=== PATIENT | female | born 1950 | race Caucasian/White ===

== ENCOUNTER 2017-06-04 12:07 | Outpatient (CLI) | payer OTHER, MEDICARE ==
[~2017-06-04 12:07] MED LIST: ATEN-41 PO; NAPR-227 PO; SIMV10TA6 PO
== END 2017-06-04 21:26 | disposition home or self-care (01) ==
LOC: SMI 12:07
PROVIDERS: ATTEND Orthopaedic Surgery
DX: M84.364A Stress fracture, left fibula, initial encounter for fracture (principal)
CPT/HCPCS: 73721

== ENCOUNTER 2018-10-09 09:19 | Outpatient (CLI) | payer OTHER, MEDICARE ==
[~2018-10-09 09:19] MED LIST changes: +NAPR-1172 PO; -NAPR-227 PO
== END 2018-10-09 21:01 | disposition home or self-care (01) ==
LOC: SCA 09:19
DX: Z01.810 Encounter for preprocedural cardiovascular examination (principal); I10 Essential (primary) hypertension; E78.5 Hyperlipidemia, unspecified; Z79.899 Other long term (current) drug therapy
CPT/HCPCS: 93005

== ENCOUNTER 2022-01-31 14:26 | Inpatient (IN) | payer OTHER, MEDICARE ==
[~2022-01-31] VITALS: Ht 165.1 cm; Wt 85.3 kg
[2022-01-31 14:26] VITALS: BP_SYST 159
[~2022-01-31 14:26] MED LIST changes: -SIMV10TA6 PO; +SIMV10TA97 PO
[2022-01-31] MEDS ORDERED: fentaNYL CITRATE/PF 100 MCG/2 ML AMP IVP ONE (15:00)
[2022-01-31] MEDS ORDERED: GENTAMICIN 100 mg/50 mL NS 50 ML IV ONE ×2 (15:00→16:05)
[2022-01-31] MEDS ORDERED: CEFAZOLIN 1 GM IVPB PREMIX 50 ML IV ONE (15:00)
[2022-01-31] MEDS ORDERED: NACL 0.9% 1,000 ML IV ONE (15:00)
[2022-01-31 15:52] LABS: ANION GAP 10 (5-15); CALCIUM 8.9 mg/dL (8.4-11.0); CHLORIDE 108 mmol/L (98-107); CREATININE 0.86 mg/dL (0.55-1.30); GLUCOSE 159 mg/dL (70-99); POTASSIUM 3.9 mmol/L (3.5-5.1); SODIUM SERUM 141 mmol/L (136-145); UREA NITROGEN, BLOOD 24 mg/dL (8-21)
[2022-01-31 15:58] LABS: ALANINE AMINOTRANSFERASE 34 U/L (12-78); ALBUMIN 3.6 g/dL (3.4-4.8); ASPARTATE AMINOTRANSFERASE 21 U/L (10-37); TOTAL BILIRUBIN 0.5 mg/dL (0.0-1.0)
[2022-01-31 16:15] LABS: HEMOGLOBIN 13.8 g/dL (12.0-16.0); MEAN CORPUSCULAR HEMOGLOBIN 30 pg (27-31); MEAN CORPUSCULAR HGB CONC 34 % (32-36); MEAN CORPUSCULAR VOLUME 90 fL (79.0-98.0); RED BLOOD CELL COUNT(AUTO) 4.56 MIL/uL (4.2-6.2); WHITE BLOOD COUNT (AUTO) 5.1 K/uL (4.8-10.8)
[2022-01-31 16:16] LABS: BASOPHILS % (AUTO) 0.4 % (0.0-2.0); EOSINOPHILS % (AUTO) 1.2 % (0.0-4.0); LYMPHOCYTES # (AUTO) 1.2 K/uL (1.0-5.5); LYMPHOCYTES % (AUTO) 23.8 % (20.5-51.5); MONOCYTES % (AUTO) 10.6 % (1.7-9.3); NEUTROPHILS # (AUTO) 3.3 K/uL (1.8-7.7); PLATELET COUNT (AUTO) 202 K/uL (130-430); RED CELL DISTRIBUTION WIDTH 14.3 % (9.0-15.0)
[2022-01-31 16:17] LABS: EOSINOPHILS # (AUTO) 0.1 K/uL (0.0-0.4); MONOCYTES # (AUTO) 0.5 K/uL (0.0-1.0)
[2022-01-31] MEDS ORDERED: MORPHINE 2 MG/ML INJ. SYRINGE ONE (16:24)
[2022-01-31] MEDS ORDERED: MORPHINE 2 MG/ML INJ. SYRINGE IVP ONE ×3 (16:30→17:15)
[2022-01-31] MEDS ORDERED: D5NS 500 ML IV ONE (17:30)
[2022-01-31] MEDS ORDERED: ATEN-41 PO (17:39)
[2022-01-31] MEDS ORDERED: LIP10 PO (17:40)
[2022-01-31] MEDS ORDERED: MORPHINE 2 MG/ML INJ. SYRINGE IVP PRN ×5 (17:45→20:00)
[2022-01-31] MEDS ORDERED: MAGNESIUM SULFATE 50 ML IV PRN (19:00)
[2022-01-31] MEDS ORDERED: DOCUSATE SODIUM 100 MG CAPSULE PO PRN (19:00)
[2022-01-31] MEDS ORDERED: POTASSIUM CHLORIDE 20 MEQ TAB.PRT.SR PO PRN (19:00)
[2022-01-31] MEDS ORDERED: NALOXONE HCL 0.4 MG/ML AMP (NARCAN) IVP PRN ×2 (19:00)
[2022-01-31] MEDS ORDERED: MUPIROCIN 2% TOPICAL OINTMENT 22 GM NS PRN (19:00)
[2022-01-31] MEDS ORDERED: ZOLPIDEM TARTRATE 5 MG TABLET PO PRN (19:00)
[2022-01-31] MEDS ORDERED: ACETAMINOPHEN 325 MG TABLET PO PRN (19:00)
[2022-01-31] MEDS ORDERED: LORazepam 2 MG/ML VIAL IVP PRN (19:00)
[2022-01-31] MEDS ORDERED: DIPH-TET-PERTUS Vaccine 0.5 ML VIAL (ADACEL) I.M. ONE ×2 (20:00→20:03)
[2022-01-31] MEDS: MORPHINE 2 MG/ML INJ. SYRINGE IVP PRN (20:11)
[2022-01-31] MEDS: HEPARIN SODIUM,PORCINE 5,000 UNITS/ML VIAL SUBCUT SCH (21:00)
[2022-01-31 22:56] VITALS: BP_SYST 150
[2022-01-31] MEDS: ONDANSETRON HCL 4 MG/2 ML VIAL IVP PRN (23:22)
[2022-01-31 23:38] VITALS: BP_SYST 140
[2022-02-01] MEDS: MORPHINE 2 MG/ML INJ. SYRINGE IVP PRN ×3 (03:17→17:59)
[2022-02-01 07:28] LABS: ANION GAP 7 (5-15); CALCIUM 7.6 mg/dL (8.4-11.0); CHLORIDE 107 mmol/L (98-107); GLUCOSE 141 mg/dL (70-99); POTASSIUM 3.7 mmol/L (3.5-5.1); SODIUM SERUM 140 mmol/L (136-145); UREA NITROGEN, BLOOD 16 mg/dL (8-21)
[2022-02-01 07:55] LABS: BASOPHILS % (AUTO) 0.4 % (0.0-2.0); EOSINOPHILS # (AUTO) 0.1 K/uL (0.0-0.4); HEMOGLOBIN 13.1 g/dL (12.0-16.0); LYMPHOCYTES # (AUTO) 1.4 K/uL (1.0-5.5); LYMPHOCYTES % (AUTO) 21.6 % (20.5-51.5); MEAN CORPUSCULAR HEMOGLOBIN 30 pg (27-31); MEAN CORPUSCULAR HGB CONC 36 % (32-36); MEAN CORPUSCULAR VOLUME 85 fL (79.0-98.0); MONOCYTES # (AUTO) 0.8 K/uL (0.0-1.0); MONOCYTES % (AUTO) 12.6 % (1.7-9.3); NEUTROPHILS % (AUTO) 64.4 % (40.0-70.0); PLATELET COUNT (AUTO) 195 K/uL (130-430); RED BLOOD CELL COUNT(AUTO) 4.35 MIL/uL (4.2-6.2); RED CELL DISTRIBUTION WIDTH 13.9 % (9.0-15.0); WHITE BLOOD COUNT (AUTO) 6.3 K/uL (4.8-10.8)
[2022-02-01 08:00] VITALS: BP_SYST 169
[2022-02-01 08:45] LABS: INR 0.9 (0.8-1.2); PROTHROMBIN TIME 9.7 SECS (9.5-12.5)
[2022-02-01] MEDS: HEPARIN SODIUM,PORCINE 5,000 UNITS/ML VIAL SUBCUT SCH ×2 (09:00→21:20)
[2022-02-01] MEDS: ATENOLOL 25 MG TABLET(TENORMIN) PO SCH (09:15)
[2022-02-01] MEDS ORDERED: hydrALAZINE HCL 20 MG/ML VIAL IVP PRN ×2 (09:15→14:15)
[2022-02-01] MEDS: ONDANSETRON HCL 4 MG/2 ML VIAL IVP PRN ×2 (09:16→17:08)
[2022-02-01 11:26] LABS: BILIRUBIN,URINE NEGATIVE (NEGATIVE); BLOOD, URINE NEGATIVE (NEGATIVE); CLARITY/URINE CLEAR (CLEAR); COLOR,URINE YELLOW (YELLOW); GLUCOSE,URINE NEGATIVE (NEGATIVE); KETONES,URINE NEGATIVE (NEGATIVE); LEUKOCYTE ESTERASE ,URINE NEGATIVE (NEGATIVE); NITRITE, URINE NEGATIVE (NEGATIVE); PROTEIN URINE NEGATIVE (NEGATIVE); UROBILINOGEN,URINE 0.2 (0.2-1.0)
[2022-02-01 12:50] VITALS: BP_SYST 159
[2022-02-01] MEDS ORDERED: HYDROmorphone 1 MG/ML INJ. CARTRIDGE IVP PRN ×2 (14:15)
[2022-02-01] MEDS: LR 1,000 ML IV SCH (14:15)
[2022-02-01] MEDS ORDERED: MEPERIDINE HCL/PF 25 MG/ML DISP.SYRIN IVP PRN (14:15)
[2022-02-01] MEDS ORDERED: ACETAMINOPHEN I.V. 1000 MG 100 ML IV ONE (14:15)
[2022-02-01] MEDS ORDERED: LABETALOL 100 MG/ 20ML VIAL IVP PRN (14:15)
[2022-02-01] MEDS ORDERED: METOCLOPRAMIDE HCL 10 MG/2 ML VIAL IVP PRN (14:15)
[2022-02-01] MEDS ORDERED: CEFAZOLIN 2 GM IVPB PREMIX 50 ML IV ONE (15:21)
[2022-02-01] MEDS ORDERED: NS IRRIG SOLN 1000 ML IR ONE (15:21)
[2022-02-01] MEDS ORDERED: LR 1,000 ML IV.SOLN IV ONE (15:21)
[2022-02-01] MEDS ORDERED: DEXAMETHASONE SOD PHOSPHATE 4 MG/ML VIAL ONE (15:21)
[2022-02-01] MEDS ORDERED: KETOROLAC TROMETHAMINE 30 MG VIAL ONE (15:21)
[2022-02-01] MEDS ORDERED: fentaNYL CITRATE/PF 100 MCG/2 ML AMP ONE (15:21)
[2022-02-01] MEDS ORDERED: PROPOFOL 200MG/ 20ML VIAL (DIPRIVAN) IV ONE (15:21)
[2022-02-01] MEDS ORDERED: SEVOFLURANE 15 MIN GAS INH ONE (15:21)
[2022-02-01] MEDS ORDERED: BUPIVACAINE /EPINEPHRINE/PF 0.25% 30 ML VIAL INJ ONE (15:21)
[2022-02-01] MEDS ORDERED: ONDANSETRON HCL 4 MG/2 ML VIAL ONE (15:21)
[2022-02-01] MEDS ORDERED: MIDAZOLAM HCL 5 MG/ML VIAL (VERSED) IV ONE (15:21)
[2022-02-01] MEDS ORDERED: LABETALOL HCL 20 MG/4 ML CARTRIDGE IVP ONE (15:32)
[2022-02-01] MEDS ORDERED: HYDROmorphone 1 MG/ML INJ. CARTRIDGE ONE (15:49)
[2022-02-01] MEDS ORDERED: HYDROcodone/ACETAMIN 5-325 MG TAB (NORCO/ VICODIN) PO PRN ×2 (16:00)
[2022-02-01] MEDS ORDERED: NALOXONE HCL 0.4 MG/ML AMP (NARCAN) IVP PRN ×2 (16:00)
[2022-02-01] MEDS ORDERED: ACETAMINOPHEN 325 MG TABLET PO PRN (16:00)
[2022-02-01 17:57] VITALS: BP_SYST 165
[2022-02-01 18:12] VITALS: BP_SYST 144
[2022-02-01 19:00] VITALS: BP_SYST 122
[2022-02-01 20:00] VITALS: BP_SYST 122
[2022-02-01] MEDS: DOCUSATE SODIUM 100 MG CAPSULE PO SCH (21:18)
[2022-02-01] MEDS: CEFAZOLIN 1 GM IVPB PREMIX 50 ML IV SCH (21:21)
[2022-02-02] VITALS: BP_SYST 126
[2022-02-02] MEDS: LR 1,000 ML IV SCH ×2 (00:15→09:35)
[2022-02-02] MEDS ORDERED: HYDR-3917 PO (00:46)
[2022-02-02] MEDS ORDERED: CEPH250C PO (00:49)
[2022-02-02] MEDS ORDERED: CEPH250S PO (00:49)
[2022-02-02] MEDS: CEFAZOLIN 1 GM IVPB PREMIX 50 ML IV SCH (06:11)
[2022-02-02 07:27] LABS: BASOPHILS % (AUTO) 0.1 % (0.0-2.0); HEMATOCRIT 37.4 % (36-48); HEMOGLOBIN 13.4 g/dL (12.0-16.0); LYMPHOCYTES # (AUTO) 1.1 K/uL (1.0-5.5); LYMPHOCYTES % (AUTO) 14.8 % (20.5-51.5); MEAN CORPUSCULAR HEMOGLOBIN 30 pg (27-31); MEAN CORPUSCULAR HGB CONC 36 % (32-36); MEAN CORPUSCULAR VOLUME 85 fL (79.0-98.0); MONOCYTES # (AUTO) 0.7 K/uL (0.0-1.0); MONOCYTES % (AUTO) 9.2 % (1.7-9.3); NEUTROPHILS # (AUTO) 5.7 K/uL (1.8-7.7); NEUTROPHILS % (AUTO) 75.9 % (40.0-70.0); PLATELET COUNT (AUTO) 211 K/uL (130-430); WHITE BLOOD COUNT (AUTO) 7.6 K/uL (4.8-10.8)
[2022-02-02 07:53] LABS: ANION GAP 10 (5-15); CHLORIDE 105 mmol/L (98-107); CREATININE 0.71 mg/dL (0.55-1.30); GLUCOSE 148 mg/dL (70-99); POTASSIUM 3.9 mmol/L (3.5-5.1); SODIUM SERUM 138 mmol/L (136-145); UREA NITROGEN, BLOOD 14 mg/dL (8-21)
[2022-02-02 08:00] VITALS: BP_SYST 146
[2022-02-02] MEDS: ATENOLOL 25 MG TABLET(TENORMIN) PO SCH (09:28)
[2022-02-02] MEDS: DOCUSATE SODIUM 100 MG CAPSULE PO SCH (09:29)
[2022-02-02] MEDS: HEPARIN SODIUM,PORCINE 5,000 UNITS/ML VIAL SUBCUT SCH (09:31)
[2022-02-02 11:02] VITALS: BP_SYST 146
[2022-02-02 11:29] VITALS: BP_SYST 150
== END 2022-02-02 14:40 | disposition home health service (06) | DRG 563 ==
LOC: SED 14:26 → STU 17:30
PROVIDERS: ADMIT General Practice; ATTEND General Practice
PROC: 2W3DX1Z Immobilization of Left Lower Arm using Splint (ICD-10-PCS; principal; 2022-01-31)
DX: S52.512A Displaced fracture of left radial styloid process, initial encounter for closed fracture (principal); I10 Essential (primary) hypertension; W01.0XXA Fall on same level from slipping, tripping and stumbling without subsequent striking against object, initial encounter; E78.5 Hyperlipidemia, unspecified; S52.612A Displaced fracture of left ulna styloid process, initial encounter for closed fracture; E83.52 Hypercalcemia; Z20.822 Contact with and (suspected) exposure to COVID-19; E89.0 Postprocedural hypothyroidism; Y93.89 Activity, other specified; Y92.89 Other specified places as the place of occurrence of the external cause; Y99.8 Other external cause status
CPT/HCPCS: 36415; 71045; 80048; 80053; 81003; 83036; 83735; 85025; 85610-TC; 85730-TC; 86886; 86900; 86901; 87081; 90715; 93005; 94640; 94760; 96365; 96375; 99285; G0378; J0131; J0690; J1100; J1170; J1580; J1644; J1885; J2060; J2250; J2270; J2405; J2704; J3010; J3490; J7120

== ENCOUNTER 2022-04-24 21:38 | Emergency (ER) | payer OTHER, MEDICARE ==
[~2022-04-24] VITALS: Ht 167.6 cm; Wt 78.9 kg
[~2022-04-24 21:38] MED LIST changes: +CEPH250C PO; +HYDR-3917 PO; +LIP10 PO; -NAPR-1172 PO; -SIMV10TA97 PO
[2022-04-24 21:40] VITALS: BP_SYST 166
--- NOTE | 2022-04-24 21:46 | NUR ---
PT HERE C/O RLQ ABD PAIN RADIATES TO RUQ WITH N/V SINCE 1830. PT DENIES DIARRHEA ND DYSURIA. PER PT IWAS SUDDEN ONSET. PMH:HTN,HYPERLIPIDEMIA PT AAOX4, NO SOB NOTED, PT AMBULATED TO RM 8 WITH STEADY GAIT.
[2022-04-24 22:33] LABS: BASOPHILS % (AUTO) 0.3 % (0.0-2.0); EOSINOPHILS % (AUTO) 0.2 % (0.0-4.0); HEMATOCRIT 42.8 % (36-48); HEMOGLOBIN 14.9 g/dL (12.0-16.0); LYMPHOCYTES # (AUTO) 1.6 K/uL (1.0-5.5); LYMPHOCYTES % (AUTO) 15.8 % (20.5-51.5); MEAN CORPUSCULAR HEMOGLOBIN 30 pg (27-31); MEAN CORPUSCULAR HGB CONC 35 % (32-36); MEAN CORPUSCULAR VOLUME 85 fL (79.0-98.0); MONOCYTES # (AUTO) 0.6 K/uL (0.0-1.0); MONOCYTES % (AUTO) 5.8 % (1.7-9.3); NEUTROPHILS # (AUTO) 7.8 K/uL (1.8-7.7); NEUTROPHILS % (AUTO) 77.9 % (40.0-70.0); PLATELET COUNT (AUTO) 249 K/uL (130-430); RED BLOOD CELL COUNT(AUTO) 5.06 MIL/uL (4.2-6.2); RED CELL DISTRIBUTION WIDTH 13.2 % (9.0-15.0)
[2022-04-24 22:42] LABS: ANION GAP 9 (5-15); CALCIUM 9.8 mg/dL (8.4-11.0); CHLORIDE 101 mmol/L (98-107); GLUCOSE 158 mg/dL (70-99); POTASSIUM 4.8 mmol/L (3.5-5.1); SODIUM SERUM 138 mmol/L (136-145); UREA NITROGEN, BLOOD 16 mg/dL (8-21)
[2022-04-24] MEDS ORDERED: NACL 0.9% 1,000 ML IV ONE (22:45)
[2022-04-24] MEDS ORDERED: KETOROLAC TROMETHAMINE 30 MG VIAL IVP ONE (22:45)
[2022-04-24 22:49] LABS: ALANINE AMINOTRANSFERASE 25 U/L (12-78); ALBUMIN 4.2 g/dL (3.4-4.8); ASPARTATE AMINOTRANSFERASE 19 U/L (10-37); LIPASE 116 U/L (73-393)
--- NOTE | 2022-04-24 22:50 | NUR ---
Pt taken to CT for imaging. Addendum: 04/24/22 at 2316 by [id number] Returned in stable condition.
--- NOTE | 2022-04-24 23:00 | NUR ---
# 20 gauge angiocath placed to R HAND. Use of asceptic technique. Opsite placed over site. Blood return noted. Flushed with 10 cc of normal saline. No evidence of infiltration noted. Patient tolerated well.
--- NOTE | 2022-04-25 00:23 | NUR ---
Pt resting comfortably in bed, at bedside. NORMAN. JOHN.
[2022-04-25 00:26] LABS: BILIRUBIN,URINE NEGATIVE (NEGATIVE); BLOOD, URINE 3+ (NEGATIVE); CLARITY/URINE CLEAR (CLEAR); COLOR,URINE YELLOW (YELLOW); GLUCOSE,URINE NEGATIVE (NEGATIVE); KETONES,URINE TRACE (NEGATIVE); LEUKOCYTE ESTERASE ,URINE 1+ (NEGATIVE); NITRITE, URINE NEGATIVE (NEGATIVE); PROTEIN URINE NEGATIVE (NEGATIVE); UROBILINOGEN,URINE 0.2 (0.2-1.0)
[2022-04-25 01:11] LABS: BACTERIA,URINE None Seen /HPF (None Seen); RBC,URINE 20-50 /HPF (0-3)
[2022-04-25 01:12] LABS: MUCUS,URINE 3+ /LPF (None Seen)
[2022-04-25] MEDS ORDERED: cefTRIAXone 1 GM IVPB PREMIX 50 ML IV ONE (01:30)
[2022-04-25] MEDS ORDERED: ONDA-8 TL (01:30)
[2022-04-25] MEDS ORDERED: NITR-85 PO (01:30)
[2022-04-25] MEDS ORDERED: NAPR-690 PO (01:30)
[2022-04-25] MEDS ORDERED: HYDR-3917 PO (01:30)
--- NOTE | 2022-04-25 01:40 | NUR ---
Patient given written and verbal discharge instructions and verbalizes understanding. ER MD Marte discussed with patient the results and treatment provided. Patient in stable condition. ID arm band removed. IV catheter removed intact and dressing applied, no active bleeding. Rx sent to pharmacy of choice. Patient educated on pain management and to follow up with PMD. Pain Scale 0/10 upon discharge. Opportunity for questions provided and answered. Medication side effect fact sheet provided.
[2022-04-25 01:54] VITALS: BP_SYST 151
== END 2022-04-25 01:50 | disposition home or self-care (01) ==
LOC: SED 21:38
DX: N20.1 Calculus of ureter (principal); R10.31 Right lower quadrant pain; R11.10 Vomiting, unspecified; Z79.899 Other long term (current) drug therapy
CPT/HCPCS: 99285; 74176; 96374; 96361; 80053; 81000; 83690; 85025; 87086; 36415; 93005; 76376; J1885; J7030; J0696

== ENCOUNTER 2022-06-12 09:51 | Outpatient (CLI) | payer OTHER, MEDICARE ==
[~2022-06-12 09:51] MED LIST changes: +NAPR-690 PO; +NITR-85 PO; +ONDA-8 TL
== END 2022-06-12 19:43 | disposition home or self-care (01) ==
LOC: SRD 09:51
PROVIDERS: ATTEND Urology
DX: Z01.818 Encounter for other preprocedural examination (principal); N20.1 Calculus of ureter; N20.0 Calculus of kidney; M41.84 Other forms of scoliosis, thoracic region; Q25.46 Tortuous aortic arch
CPT/HCPCS: 71046-TC; 93005

== ENCOUNTER 2024-04-14 12:37 | Inpatient (IN) | payer OTHER, MEDICARE ==
[~2024-04-14] VITALS: Ht 167.6 cm; Wt 72.6 kg
[~2024-04-14 12:37] MED LIST changes: +ATOR-449 PO; -LIP10 PO
[2024-04-14 12:46] VITALS: BP_SYST 141; PULSE 74; RESP 16; TEMP 97.3; O2SAT 95
[2024-04-14 13:06] LABS: BASOPHILS % (AUTO) 0.4 % (0.0-2.0); EOSINOPHILS # (AUTO) 0.1 K/uL (0.0-0.4); HEMATOCRIT 42.5 % (36-48); HEMOGLOBIN 14.7 g/dL (12.0-16.0); LYMPHOCYTES % (AUTO) 28.1 % (20.5-51.5); MEAN CORPUSCULAR HEMOGLOBIN 29 pg (27-31); MEAN CORPUSCULAR HGB CONC 35 % (32-36); MEAN CORPUSCULAR VOLUME 85 fL (79.0-98.0); MONOCYTES # (AUTO) 0.7 K/uL (0.0-1.0); MONOCYTES % (AUTO) 9.6 % (1.7-9.3); NEUTROPHILS # (AUTO) 4.4 K/uL (1.8-7.7); NEUTROPHILS % (AUTO) 60.9 % (40.0-70.0); PLATELET COUNT (AUTO) 249 K/uL (130-430); RED CELL DISTRIBUTION WIDTH 13.5 % (9.0-15.0); WHITE BLOOD COUNT (AUTO) 7.2 K/uL (4.8-10.8)
[2024-04-14 13:16] LABS: ANION GAP 9 (5-15); CARBON DIOXIDE 28 mmol/L (23-29); CHLORIDE 106 mmol/L (98-107); CREATININE 0.83 mg/dL (0.55-1.30); GLUCOSE 135 mg/dL (74-106); POTASSIUM 3.6 mmol/L (3.5-5.1); SODIUM SERUM 143 mmol/L (136-145); UREA NITROGEN, BLOOD 17 mg/dL (8-21)
[2024-04-14] MEDS: KETOROLAC TROMETHAMINE 30 MG VIAL IVP ONE (13:19)
[2024-04-14] MEDS: ONDANSETRON HCL 4 MG/2 ML VIAL IVP ONE ×2 (13:21→17:06)
[2024-04-14 13:53] LABS: BILIRUBIN,URINE NEGATIVE (NEGATIVE); BLOOD, URINE 3+ (NEGATIVE); CLARITY/URINE CLOUDY (CLEAR); COLOR,URINE BROWN (YELLOW); GLUCOSE,URINE NEGATIVE (NEGATIVE); KETONES,URINE NEGATIVE (NEGATIVE); LEUKOCYTE ESTERASE ,URINE NEGATIVE (NEGATIVE); NITRITE, URINE POSITIVE (NEGATIVE); PH,URINE 5.5 (5.0-8.0); PROTEIN URINE 2+ (NEGATIVE)
[2024-04-14 14:00] LABS: BACTERIA,URINE MODERATE /HPF (None Seen); RBC,URINE >100 /HPF (0-3); YEAST,URINE Rare /HPF (None Seen)
[2024-04-14 14:01] LABS: MUCUS,URINE 1+ /LPF (None Seen)
[2024-04-14] MEDS: MORPHINE 2 MG/ML INJ. SYRINGE IVP ONE (17:07)
[2024-04-14] MEDS: TAMSULOSIN HCL 0.4 MG CAP PO ONE ×2 (18:04→20:28)
[2024-04-14] MEDS: LR 1,000 ML IV ONE (20:28)
[2024-04-14 22:00] VITALS: BP_SYST 130; PULSE 70; RESP 18; TEMP 98; O2SAT 96
[2024-04-14] MEDS ORDERED: KETOROLAC TROMETHAMINE 15 MG VIAL IVP PRN (22:00)
[2024-04-14] MEDS ORDERED: DEXTROSE 50% JECT 50 ML DISP.SYRIN IVP PRN (22:00)
[2024-04-14] MEDS ORDERED: ACETAMINOPHEN 650 MG SUPP.RECT RC PRN (22:00)
[2024-04-14] MEDS ORDERED: cloNIDine HCL 0.1 MG TABLET PO PRN (22:00)
[2024-04-14] MEDS ORDERED: INSULIN REGULAR, HUMAN 100 UNITS/ML, 3 ML VIAL (humuLIN R) SUBCUT PRN (22:00)
[2024-04-14] MEDS ORDERED: ONDANSETRON 4 MG ODT TAB TL PRN (22:00)
[2024-04-14] MEDS ORDERED: NALOXONE HCL 0.4 MG/ML AMP (NARCAN) IVP PRN (22:00)
[2024-04-14] MEDS ORDERED: ZOLPIDEM TARTRATE 5 MG TABLET PO PRN (22:00)
[2024-04-14] MEDS: PIPERACILLIN/TAZO 3.375 GM in D5W 50 ML IV SCH (22:10)
[2024-04-14] MEDS: HYDROcodone/ACETAMIN 5-325 MG TAB (NORCO/ VICODIN) PO PRN (22:24)
[2024-04-15 05:00] LABS: BASOPHILS % (AUTO) 0.4 % (0.0-2.0); EOSINOPHILS # (AUTO) 0.1 K/uL (0.0-0.4); EOSINOPHILS % (AUTO) 1.1 % (0.0-4.0); HEMATOCRIT 36.8 % (36-48); HEMOGLOBIN 12.8 g/dL (12.0-16.0); LYMPHOCYTES # (AUTO) 1.6 K/uL (1.0-5.5); LYMPHOCYTES % (AUTO) 26.7 % (20.5-51.5); MEAN CORPUSCULAR HEMOGLOBIN 30 pg (27-31); MEAN CORPUSCULAR HGB CONC 35 % (32-36); MEAN CORPUSCULAR VOLUME 85 fL (79.0-98.0); MONOCYTES # (AUTO) 0.8 K/uL (0.0-1.0); MONOCYTES % (AUTO) 12.8 % (1.7-9.3); NEUTROPHILS # (AUTO) 3.6 K/uL (1.8-7.7); PLATELET COUNT (AUTO) 199 K/uL (130-430); RED BLOOD CELL COUNT(AUTO) 4.33 MIL/uL (4.2-6.2); RED CELL DISTRIBUTION WIDTH 13.1 % (9.0-15.0); WHITE BLOOD COUNT (AUTO) 6.1 K/uL (4.8-10.8)
[2024-04-15 05:55] LABS: ALANINE AMINOTRANSFERASE 20 U/L (12-78); ALBUMIN 3.2 g/dL (3.4-4.8); ANION GAP 6 (5-15); CALCIUM 8.4 mg/dL (8.4-11.0); CARBON DIOXIDE 29 mmol/L (23-29); CHLORIDE 107 mmol/L (98-107); CREATININE 0.91 mg/dL (0.55-1.30); GLUCOSE 115 mg/dL (74-106); POTASSIUM 3.7 mmol/L (3.5-5.1); SODIUM SERUM 142 mmol/L (136-145); TOTAL BILIRUBIN 1.1 mg/dL (0.0-1.0); TOTAL PROTEIN, SERUM 5.8 g/dL (6.4-8.3); UREA NITROGEN, BLOOD 17 mg/dL (8-21)
[2024-04-15 07:27] LABS: ASPARTATE AMINOTRANSFERASE 15 U/L (10-37)
[2024-04-15 08:00] VITALS: O2SAT 97
[2024-04-15] MEDS: ATORVASTATIN 10 MG TABLET PO SCH (09:14)
[2024-04-15] MEDS: ATENOLOL 25 MG TABLET(TENORMIN) PO SCH (09:23)
[2024-04-15 13:07] VITALS: BP_SYST 114; PULSE 67; RESP 17; TEMP 98.2; O2SAT 96
[2024-04-15] MEDS: ONDANSETRON HCL 4 MG/2 ML VIAL IVP PRN (13:54)
[2024-04-15 18:38] VITALS: BP_SYST 117; PULSE 98; RESP 20; TEMP 97.8; O2SAT 96
[2024-04-15 20:00] VITALS: BP_SYST 139; PULSE 69; RESP 18; TEMP 98.8; O2SAT 97; O2SAT 98
[2024-04-16] VITALS: BP_SYST 134; PULSE 72; RESP 18; TEMP 98; O2SAT 96
[2024-04-16 08:00] VITALS: O2SAT 99
[2024-04-16 12:08] VITALS: BP_SYST 126; PULSE 70; RESP 17; TEMP 98.6; O2SAT 97
[2024-04-16] MEDS ORDERED: CIPR500T5 PO (13:17)
[2024-04-16] MEDS ORDERED: TAMS-11 PO (13:18)
[2024-04-16] MEDS ORDERED: LACT1TAB26 PO (13:20)
[2024-04-16 15:27] VITALS: BP_SYST 126; PULSE 70; RESP 18; TEMP 98.6; O2SAT 97
[2024-04-16 16:05] VITALS: BP_SYST 121; PULSE 72; RESP 18; TEMP 98.7; O2SAT 97
[2024-04-17] MEDS ORDERED: IBUP-1969 PO (12:47)
[2024-04-17] MEDS ORDERED: ONDA-8 TL (12:47)
[2024-04-17] MEDS ORDERED: TRAM50TA2 PO (12:47)
== END 2024-04-16 16:45 | disposition home or self-care (01) | DRG 690 ==
LOC: SED 12:37 → SMU 17:38
PROVIDERS: ADMIT Internal Medicine; ATTEND Internal Medicine
DX: N13.6 Pyonephrosis (principal); I10 Essential (primary) hypertension; E78.5 Hyperlipidemia, unspecified; Z79.899 Other long term (current) drug therapy; Z88.8 Allergy status to other drugs, medicaments and biological substances; R73.03 Prediabetes
CPT/HCPCS: 36415; 74018; 76770; 80048; 80053; 81000; 81001; 81015; 82948; 83037; 85025; 85610; 85730; 87086; 87186; 96375; 99285; J1885; J2270; J2405; J2543; J7060

== ENCOUNTER 2024-04-17 11:17 | Emergency (ER) | payer OTHER, MEDICARE ==
[~2024-04-17] VITALS: Ht 167.6 cm; Wt 81.2 kg
[~2024-04-17 11:17] MED LIST changes: -CEPH250C PO; +CIPR500T5 PO; +LACT1TAB26 PO; -NAPR-690 PO; -NITR-85 PO; +TAMS-11 PO
[2024-04-17 11:21] VITALS: BP_SYST 132; PULSE 97; RESP 18; TEMP 98; O2SAT 96
[2024-04-17] MEDS: KETOROLAC TROMETHAMINE 60 MG/2 ML VIAL IM ONE (11:50)
[2024-04-17 11:53] LABS: BILIRUBIN,URINE NEGATIVE (NEGATIVE); BLOOD, URINE 3+ (NEGATIVE); CLARITY/URINE CLEAR (CLEAR); COLOR,URINE YELLOW (YELLOW); GLUCOSE,URINE NEGATIVE (NEGATIVE); KETONES,URINE NEGATIVE (NEGATIVE); LEUKOCYTE ESTERASE ,URINE NEGATIVE (NEGATIVE); NITRITE, URINE NEGATIVE (NEGATIVE); PROTEIN URINE NEGATIVE (NEGATIVE); UROBILINOGEN,URINE 0.2 (0.2-1.0)
[2024-04-17 11:58] LABS: BASOPHILS % (AUTO) 0.2 % (0.0-2.0); LYMPHOCYTES # (AUTO) 1.2 K/uL (1.0-5.5); MONOCYTES # (AUTO) 0.9 K/uL (0.0-1.0); WHITE BLOOD COUNT (AUTO) 8.8 K/uL (4.8-10.8)
[2024-04-17 12:00] LABS: EOSINOPHILS % (AUTO) 0.3 % (0.0-4.0); HEMATOCRIT 39.2 % (36-48); HEMOGLOBIN 13.8 g/dL (12.0-16.0); LYMPHOCYTES % (AUTO) 13.6 % (20.5-51.5); MEAN CORPUSCULAR HEMOGLOBIN 30 pg (27-31); MEAN CORPUSCULAR HGB CONC 35 % (32-36); MEAN CORPUSCULAR VOLUME 84 fL (79.0-98.0); MONOCYTES % (AUTO) 9.9 % (1.7-9.3); NEUTROPHILS # (AUTO) 6.7 K/uL (1.8-7.7); PLATELET COUNT (AUTO) 223 K/uL (130-430); RED BLOOD CELL COUNT(AUTO) 4.64 MIL/uL (4.2-6.2); RED CELL DISTRIBUTION WIDTH 13.1 % (9.0-15.0)
[2024-04-17 12:17] LABS: BACTERIA,URINE None Seen /HPF (None Seen); RBC,URINE NONE SEEN /HPF (0-3); WBC,URINE 0-3 /HPF (0-3)
[2024-04-17 12:24] LABS: PROTHROMBIN TIME 10.3 SECS (9.5-12.5)
[2024-04-17 12:27] LABS: ALANINE AMINOTRANSFERASE 19 U/L (12-78); ALBUMIN 3.6 g/dL (3.4-4.8); AMYLASE 57 U/L (0-100); ANION GAP 8 (5-15); ASPARTATE AMINOTRANSFERASE 17 U/L (10-37); BILIRUBIN,DIRECT 0.2 mg/dL (0.0-0.3); CALCIUM 8.9 mg/dL (8.4-11.0); CARBON DIOXIDE 28 mmol/L (23-29); CHLORIDE 104 mmol/L (98-107); CREATININE 1.16 mg/dL (0.55-1.30); GLUCOSE 107 mg/dL (74-106); LIPASE 34 U/L (16-77); POTASSIUM 3.6 mmol/L (3.5-5.1); SODIUM SERUM 140 mmol/L (136-145); TOTAL BILIRUBIN 0.8 mg/dL (0.0-1.0); UREA NITROGEN, BLOOD 10 mg/dL (8-21)
[2024-04-17] MEDS ORDERED: ONDA-8 TL (12:47)
[2024-04-17] MEDS ORDERED: IBUP-1969 PO (12:47)
[2024-04-17] MEDS ORDERED: TRAM50TA2 PO (12:47)
[2024-04-17 13:26] VITALS: BP_SYST 132; PULSE 97; RESP 18; TEMP 98; O2SAT 96
== END 2024-04-17 13:25 | disposition home or self-care (01) ==
LOC: SED 11:17
DX: N20.0 Calculus of kidney (principal); Z79.899 Other long term (current) drug therapy; Z79.2 Long term (current) use of antibiotics
CPT/HCPCS: 99283; 80076; 80048; 81001; 82150; 83690; 85025; 85610; 85730; 36415; 96372; 83605; 82397; J1885; 81000; 81015